=== PATIENT | female | born 1950 | race Caucasian/White ===

== ENCOUNTER 2025-01-29 08:07 | Outpatient (CLI) | payer MEDICARE, BC | END 2025-01-29 23:59 | disposition home or self-care (01) | LOC: MRI02 08:07 | PROVIDERS: ATTEND Podiatrist Foot & Ankle Surgery | DX: S92.331A Displaced fracture of third metatarsal bone, right foot, initial encounter for closed fracture (principal); M79.671 Pain in right foot; S92.321A Displaced fracture of second metatarsal bone, right foot, initial encounter for closed fracture; S96.811A Strain of other specified muscles and tendons at ankle and foot level, right foot, initial encounter; S92.341A Displaced fracture of fourth metatarsal bone, right foot, initial encounter for closed fracture; M77.51 Other enthesopathy of right foot and ankle; M65.871 Other synovitis and tenosynovitis, right ankle and foot; S92.301A Fracture of unspecified metatarsal bone(s), right foot, initial encounter for closed fracture; X58.XXXA Exposure to other specified factors, initial encounter; Y93.9 Activity, unspecified; Y92.89 Other specified places as the place of occurrence of the external cause; Y99.8 Other external cause status | CPT/HCPCS: 73718; 73721 ==